=== PATIENT | female | born 1995 | race Caucasian/White ===

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

== ENCOUNTER 2017-02-19 22:17 | Emergency (ER) | payer OTHER ==
[~2017-02-19] VITALS: Ht 154.9 cm; Wt 64.7 kg
[~2017-02-19 22:17] MED LIST changes: +DULERA 200 MCG/13 GM IH; +FLUTICASONE P15.8 ML BOTH NARES; +NEXIUM 24HR20 MG PO; +VENTOLIN HFA18 GM IH
[2017-02-19 23:06] LABS: HEMATOCRIT 41.6 % (36.0-46.0); MCH 30.7 PG (29.0-34.0); MCHC 33.4 G/DL (30.0-36.0); MCV 91.8 FL (83-99); MEAN PLAT.VOLUME 9.2 uM^3 (9.5-12.4); PLATELET COUNT 260 K/uL (156-360); RBC DIS.WIDTH-CV 13.4 % (11.8-14.6); RBC DIS.WIDTH-SD 45.1 % (39-53); RED BLOOD COUNT 4.53 M/uL (3.80-5.20); WHITE BLOOD COUNT 15.3 K/uL (4.1-10.2)
[2017-02-19 23:19] LABS: CHLORIDE 101 mEq/L (99-109); POTASSIUM 3.8 mEq/L (3.7-5.4); SODIUM 139 mEq/L (136-147)
[2017-02-19 23:22] LABS: GLUCOSE 114 mg/dL (70-99)
[2017-02-19 23:23] LABS: ANION GAP 13 MEQ/L (2-14)
[2017-02-19 23:24] LABS: TOTAL BILIRUBIN 0.7 mg/dL (0.0-1.0)
[2017-02-19 23:25] LABS: ALKALINE PHOSPHATASE 67 IU/L (3-129); GFR ESTIMATE (CALCULATED) > 59 mL/min/
[2017-02-19 23:27] LABS: UREA NITROGEN (BUN) 9 mg/dL (9-23)
[2017-02-19 23:36] LABS: QUANTITATIVE HCG < 4.0 MIU/ML
[2017-02-20 01:03] LABS: ADD MIUA? YES; BILIRUBIN NEGATIVE; BLOOD NEGATIVE; COLOR YELLOW ((YELLOW)); GLUCOSE (STRIP) NEGATIVE; KETONES 20; LEUKOCYTES NEGATIVE; NITRITE NEGATIVE; PROTEIN (STRIP) 100; UROBILINOGEN 0.2 MG/DL (0.2-1.0)
[2017-02-20 01:16] LABS: LIPASE 2 U/L (1.0-51.0)
[2017-02-20 01:30] LABS: BACTERIA RARE /HPF; EPITHELIAL CELLS 3+ /HPF; MUCUS 2+ /LPF; UCUL ADDED? NO; WHITE BLOOD CELLS 0-5 /HPF (0-5)
[2017-02-20] MEDS ORDERED: ZOFRAN ODT4 MG PO (01:58)
[2017-02-20 03:57] VITALS: BP 107/56
== END 2017-02-20 03:59 | disposition home or self-care (01) ==
LOC: EME 22:17
DX: S09.90XA Unspecified injury of head, initial encounter (principal); R11.2 Nausea with vomiting, unspecified; R31.9 Hematuria, unspecified; W01.0XXA Fall on same level from slipping, tripping and stumbling without subsequent striking against object, initial encounter; Z88.5 Allergy status to narcotic agent
CPT/HCPCS: 80053; 81003; 83690; 84702; 85027; 99281; 99285; J1885; J2405; J7030

== ENCOUNTER 2017-06-15 21:36 | Emergency (ER) | payer OTHER ==
[~2017-06-15] VITALS: Ht 154.9 cm; Wt 63.0 kg
[~2017-06-15 21:36] MED LIST changes: +ZOFRAN ODT4 MG PO
[2017-06-15 22:00] LABS: APPEARANCE CLOUDY ((CLEAR)); BILIRUBIN NEGATIVE; BLOOD NEGATIVE; COLOR YELLOW ((YELLOW)); GLUCOSE (STRIP) NEGATIVE; KETONES 5; LEUKOCYTES TRACE; NITRITE NEGATIVE; PROTEIN (STRIP) NEGATIVE; SPECIFIC GRAVITY 1.021 (1.000-1.030)
[2017-06-15 22:47] LABS: BACTERIA 1+ /HPF; EPITHELIAL CELLS 3+ /HPF; MUCUS 3+ /LPF; RED BLOOD CELLS 0-5 /HPF (0-5); UCUL ADDED? NO; WHITE BLOOD CELLS 0-5 /HPF (0-5)
[2017-06-15] MEDS ORDERED: FLAGYL500 MG PO (23:38)
[2017-06-15 23:48] LABS: SOURCE SWAB
[2017-06-16 00:04] VITALS: BP 140/86
== END 2017-06-16 00:04 | disposition home or self-care (01) ==
LOC: EME 21:36
PROVIDERS: Emergency Medicine
DX: N76.0 Acute vaginitis (principal); N30.90 Cystitis, unspecified without hematuria; Z20.2 Contact with and (suspected) exposure to infections with a predominantly sexual mode of transmission; J45.909 Unspecified asthma, uncomplicated; Z88.5 Allergy status to narcotic agent
CPT/HCPCS: 81003; 81025; 87210; 87491; 87591; 99281; 99284; J0696